=== PATIENT | male | born 1960 | race Caucasian/White ===

== ENCOUNTER 2020-03-25 13:41 | Outpatient (CLI) | payer MEDICARE, SELFPAY ==
--- NOTE | ~2020-03-25 | CT_ITS ---
EXAMINATION:CT lung screening DATE: 03/25/2020 14:17 INDICATION: Personal history of tobacco dependence. Current smoker with 40 pack year history. TECHNIQUE: Computed tomography (CT) of the chest was performed without intravenous contrast. Automate d exposure control and iterative reconstruction technique were employed. The dose-length product (DLP ) was 100.94 mGy-cm. COMPARISON: None. FINDINGS: There is mild emphysema. There is a 3 mm nodule at right major fissure. There is a 3 mm nod ule in right upper lobe. There is a 4 mm nodule in right lower lobe. There is mild scarring at the charanjit ng apices. There is a 4 mm nodule in left lower lobe. A calcified left lung nodule and calcified left hilar lymph nodes are consistent with old granulomatous disease. No pleural effusion. The heart size is normal. There are coronary artery calcifications. No pericardial effusion. There is mild bilatera l gynecomastia. Calcifications in the spleen are consistent with old granulomatous disease. There is severe cervical and thoracic spondylosis. IMPRESSION: 1. Lung-RADS category 2: Benign appearance or behavior. Continue annual screening with noncontrast lo w-dose chest CT in 12 months. Reviewed, dictated and finalized at location A. IMPRESSION: 1. Lung-RADS category 2: Benign appearance or behavior. Continue annual screeni ng with noncontrast low-dose chest CT in 12 months.
== END 2020-03-25 13:42 | disposition home or self-care (01) ==
PROVIDERS: PCP Family Medicine; Visit Provider Family Medicine
DX: Z12.2 Encounter for screening for malignant neoplasm of respiratory organs (principal); Z87.891 Personal history of nicotine dependence
CPT/HCPCS: G0297

== ENCOUNTER 2020-12-09 10:08 | Outpatient (CLI) | payer MEDICARE, SELFPAY ==
--- NOTE | ~2020-12-09 | XR_ITS ---
EXAMINATION: XR hand RT min 3V DATE: 12/09/2020 10:27 INDICATION: Nontraumatic right hand arthritic pain. TECHNIQUE: Posteroanterior, oblique and lateral views of the right hand were obtained. COMPARISON: None. FINDINGS: Bone alignment is normal. No fracture. 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 No cortical erosions to suggest an inflammatory arthritis. Distal ulnar bone island. Soft tissues are unremarkable. IMPRESSION: 1. 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 Reviewed, dictated and finalized at location B. ICAL SOCIOLOGIST
== END 2020-12-09 10:09 | disposition home or self-care (01) ==
LOC: ANHIMG 10:13
PROVIDERS: PCP Family Medicine; Visit Provider Nurse Practitioner Family
DX: M19.031 Primary osteoarthritis, right wrist (principal); M19.041 Primary osteoarthritis, right hand
CPT/HCPCS: 73130

== ENCOUNTER → 2022-04-08 09:42 | Outpatient (CLI) | payer OTHER, SELFPAY ==
--- NOTE | ~2022-04-08 | CT_ITS ---
EXAMINATION: CT lung screening DATE: 04/08/2022 09:58 INDICATION: Z12.2 - Encounter for screening for malignant neoplasm of..., Tobacco dependence. TECHNIQUE: Computed tomography (CT) of the chest was performed without intravenous contrast. Addition al 3D reconstructions utilizing coronal maximum intensity projection (MIP) were performed. Automated exposure control and iterative reconstruction technique were employed. The dose-length product was 16 3.87 mGy-cm. COMPARISON: 03/25/2020 FINDINGS: Mild emphysema. Couple calcite left lower lobe nodules along with calcified left hilar lymph nodes an d multiple splenic calcifications, all consistent with old granulomatous disease. A few unchanged non calcified pulmonary nodules in the bilateral lower lobes, the largest measuring up to 4 mm in the rig ht lower lobe. No new or enlarging pulmonary nodules identified. No pneumonia, pulmonary edema or ple ural effusion. Heart size is normal. Atherosclerotic coronary artery calcific location. Thoracic aort a is normal in caliber. No pathologically enlarged thoracic lymphadenopathy. Visualized upper abdomen is unremarkable. Severe cervical and thoracic spondylosis. IMPRESSION: 1. Lung-RADS category 2: Benign appearance or behavior. Continue annual screening with noncontrast lo w-dose chest CT in 12 months. Reviewed, dictated and finalized at location B. IMPRESSION: 1. Lung-RADS category 2: Benign appearance or behavior. Continue annual screeni ng with noncontrast low-dose chest CT in 12 months.
== END ==
PROVIDERS: PCP Family Medicine; Visit Provider Family Medicine
DX: Z12.2 Encounter for screening for malignant neoplasm of respiratory organs (principal)
CPT/HCPCS: 71271

== ENCOUNTER → 2022-10-31 07:39 | Outpatient (CLI) | payer MEDICARE, SELFPAY ==
--- NOTE | ~2022-10-31 | US_ITS ---
Limited Abdominal Sonogram: Real-time sonographic imaging of the right upper quadrant was performed. Clinical History: Right upper quadrant pain Findings: The liver appears echogenic, with no evidence of mass lesion or bile duct dilatation. Main portal vein demonstrates normal direction of flow. The gallbladder is well distended, and appears no rmal with no evidence of gallstone or wall thickening. The common bile duct measures 4 mm. The visua lized pancreas, aorta, and IVC are unremarkable. Right kidney measures 8.7 cm in length, without hydr onephrosis. Impression: Diffuse fatty infiltration of the liver. Reviewed, dictated and finalized at location [] RACT PROGRAMMER Impression: Diffuse fatty infiltration of the liver.
== END ==
PROVIDERS: PCP Family Medicine; Visit Provider Family Medicine
DX: R10.11 Right upper quadrant pain (principal); K76.0 Fatty (change of) liver, not elsewhere classified
CPT/HCPCS: 76705

== ENCOUNTER 2022-11-21 07:45 | Outpatient (CLI) | payer MEDICARE, SELFPAY ==
--- NOTE | ~2022-11-21 | NM_ITS ---
EXAMINATION: NM hepatobiliary wo pharm DATE: 11/21/2022 11:53 INDICATION: Right upper quadrant abdominal pain. COMPARISON: Ultrasound 10/31/2022 TECHNIQUE: 5 mCi Tc-99m mebrofenin (Choletec) was administered intravenously. Scintigraphic images o f the abdomen were obtained for one hour. Then, the patient drank 8 oz Ensure, and imaging was contin ued for 60 minutes. FINDINGS: There is normal clearance of radiotracer from the blood pool. There is homogeneous tracer u ptake by the liver. Activity progresses to the bowel and gallbladder. Gallbladder ejection fraction (GBEF) was 90%. Note that with this technique, normal GBEF >= 33%. IMPRESSION: 1. Normal hepatobiliary scintigraphy. Reviewed, dictated and finalized at location A. ERING MACHINE OFF BEARER
== END 2022-11-21 07:46 | disposition home or self-care (01) ==
PROVIDERS: PCP Family Medicine; Visit Provider Family Medicine
DX: R10.11 Right upper quadrant pain (principal)
CPT/HCPCS: 78226; A9537

== ENCOUNTER 2023-01-16 07:20 | Day surgery (SDC) | payer MEDICARE, SELFPAY ==
[2022-12-02 15:17] VITALS: BMI 26.7
[2023-01-09 13:37] VITALS: BMI 25.2
--- NOTE | 2023-01-16 08:28 | WPDANESEPPF ---
Anes - Initial Pre Proc Eval Procedure: Operation Date: 01/16/23 09:00 Proposed Procedures p Esophagogastroduodenoscopy - Syd Humphrey MD Date/Time: 01/16/23 08:28 Surgeon: Syd Humphrey MD Pre Op Diagnosis: Gerd and Right Upper Qudrant Pain Patient Data Age: 62 Gender: M Height: 1.68 m Weight: 73.9 kg Allergies Allergy/AdvReac Type Severity Reaction Status Date / Time diazepam Allergy Intermediate Itching Verified 01/16/23 07:46 Home Medications Medication Instructions Recorded Confirmed Type multivitamin 1 tablet PO DAILY 03/28/22 01/16/23 History oxycodone-acetaminophen 5 mg-325 1 tablet PO Q8H PRN Back Pain #30 03/28/22 01/16/23 Rx mg tablet tabs amlodipine 5 mg tablet 5 mg PO DAILY #90 tabs 10/04/22 01/16/23 Rx ibuprofen 200 mg tablet (Advil) 200 mg PO Q6H PRN Pain, Mild 01/09/23 01/16/23 History lisinopril 20 mg tablet See Rx Instructions .Route 01/16/23 Rx .COMPLEX #90 tabs Patient hx anesthesia problems: none Family hx anesthesia problems: none Results Review: All pre-operative results and documents have been reviewed as part of the pre-operative evaluation. [facility] Past Medical History Medical History Erectile dysfunction Fatty liver Surgical History Surgical History Status post carpal tunnel release right Status post lumbar spinal fusion Status post rotator cuff repair right Family History Family History Father Hypertension Mother Hypertension Social History Social History Social History: Single Smoking packs per day: 3 Smoking cigarettes per day: 60.0 Years smoked: 30 Smoking pack-years: 90.00 Smoking status: Former smoker Tobacco type: cigarettes Second hand tobacco smoke exposure: Yes Smoking end date: 11/13/99 Alcohol intake: current Drinks per week: 7 Alcohol use details: 6- 7 beers weekly Substance use: unknown Substance use type: does not use Living arrangements: alone Occupation/Education: occupation Additional occupation/education comments: 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 Gender identity (if verbalized by the patient): Male Sexual Orientation (if Verbalized by the Patient): Straight or Heterosexual Spiritual care concerns: No Anes - Eval Final PreProcedure Day of Procedure 01/16/23 08:28 Patient weight: overweight Heart: regular rate and rhythm Lungs: decreased breath sounds Airway: Mallampati scale class II Neurological: alert and oriented Last oral intake: >/= 8 hours ASA classification: III Emergent: no Anesthetic plan: proceed Anesthesia type and monitoring: general GIVS and standard monitoring Results Review: All pre-operative results and documents have been reviewed as part of the pre-operative evaluation. Informed Consent: The patient's anesthetic plan and its attendant risks and benefits were discussed with the patient/family/POA. Questions were solicited and answers provided to the satisfaction of the patient/family/POA.
[2023-01-16] MEDS: LACTATED RINGERS 1,000 ML 150 ML IV CONT (08:31)
--- NOTE | 2023-01-16 08:45 | PM.HPGS ---
History of Present Illness History of Present Illness Consent: Risks, benefits, and alternatives have been discussed and questions answered. Patient agrees to proceed with procedure. Chief complaint: Gerd and Right Upper Qudrant Pain Narrative: Collins Minor is a 62 year old male with almost 1 year on intermittent nagging rup pain, negative ultrasound other than fatty liver and negative hida scan, normal cmp. Never had EGD. Also history of diarrhea, never had colonoscopy but he is doing cologuard every 2 years. Review of Systems Constitutional: Constitutional: Denies headache(s) and Denies weakness Eyes: Eyes: Denies blurry vision ENT: Reports Normal hearing present, Denies headache(s) and Denies neck pain Cardiovascular: Cardiovascular: Denies chest pain and Denies dyspnea Respiratory: Respiratory: Denies dyspnea Gastrointestinal: Gastrointestinal: Reports no additional gastrointestinal complaints Genitourinary: Genitourinary: Denies dysuria Musculoskeletal: Musculoskeletal: Denies neck pain Integumentary/Breasts: Skin/Breast: Denies dry skin Neurologic: Reports Normal hearing present, Denies headache(s) and Denies weakness Psychiatric: Psychiatric: Denies anxiety Endocrine: Endocrine: Denies change in body appearance Hematologic/Lymphatic: Hematologic/Lymphatic: Denies easy bleeding Allergic/Immunologic: Allergic/Immunologic: Denies urticaria PMFSH Past Medical History Medical History (Updated 01/16/23 @ 08:46 by Syd Humphrey MD) Diarrhea Erectile dysfunction Fatty liver RUQ pain Surgical History Surgical History Status post carpal tunnel release right Status post lumbar spinal fusion Status post rotator cuff repair right Family History Family History Father Hypertension Mother Hypertension Social History Social History Social History: Single Smoking packs per day: 3 Smoking cigarettes per day: 60.0 Years smoked: 30 Smoking pack-years: 90.00 Smoking status: Former smoker Tobacco type: cigarettes Second hand tobacco smoke exposure: Yes Smoking end date: 11/13/99 Alcohol intake: current Drinks per week: 7 Alcohol use details: 6- 7 beers weekly Substance use: unknown Substance use type: does not use Living arrangements: alone Occupation/Education: occupation Additional occupation/education comments: 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 Gender identity (if verbalized by the patient): Male Sexual Orientation (if Verbalized by the Patient): Straight or Heterosexual Spiritual care concerns: No Meds Home Medications and Allergies Home Medications Medication Instructions Recorded Confirmed Type multivitamin 1 tablet PO DAILY 03/28/22 01/16/23 History oxycodone-acetaminophen 5 mg-325 1 tablet PO Q8H PRN Back Pain #30 03/28/22 01/16/23 Rx mg tablet tabs amlodipine 5 mg tablet 5 mg PO DAILY #90 tabs 10/04/22 01/16/23 Rx ibuprofen 200 mg tablet (Advil) 200 mg PO Q6H PRN Pain, Mild 01/09/23 01/16/23 History lisinopril 20 mg tablet See Rx Instructions .Route 01/16/23 Rx .COMPLEX #90 tabs Allergies Allergy/AdvReac Type Severity Reaction Status Date / Time diazepam Allergy Intermediate Itching Verified 01/16/23 07:46 Exam Const: General: comfortable and no acute distress HENMT: Face/Nose/Sinus: Normal nares present Eyes: General: appearance normal, both eyes and all related structures Neck: Neck: no JVD Resp: Auscultation: clear to auscultation bilaterally Cardio: Rate: regular rate Rhythm: regular rhythm GI: Inspection: non-distended GI Palp: Yes Soft to palpation Skin: General skin exam: normal color Neuro: General: gait normal Speech: normal speech Extrem: General: normal to inspection Psych: Mental Status: mental status grossly fili
[2023-01-16 08:57] VITALS: BP 99/69; PULSE 75; RESP 16; O2SAT 97
[2023-01-16 09:07] VITALS: BP 100/68; PULSE 72; RESP 16; O2SAT 98
--- NOTE | 2023-01-16 09:15 | SUR.PHASEII ---
PT AWAKE AND ALERT. TALKATIVE. DRINKING WATER. STATES HE IS READY TO GO HOME. RIDE CALLED. PT DENIES PAIN.
[2023-01-16 09:17] VITALS: BP 123/84; PULSE 73; RESP 19; O2SAT 98
--- NOTE | 2023-01-16 09:18 | WPDANESPN ---
Anes - Prog Note Post-Op Date/Time: 01/16/23 09:18 Cardiovascular status: normal Respiratory status: normal Airway patency: baseline Mental status: baseline Post-Op hydration status: normal Vital Signs: Last Vital Signs Pulse 72 01/16/23 09:07 Resp 16 01/16/23 09:07 BP 100/68 01/16/23 09:07 Pulse Ox 98 01/16/23 09:07 O2 Del Method Room Air 01/16/23 09:07 Pain Score (VAS): 0 I/O: Intake & Output 01/15/23 01/16/23 01/16/23 23:59 07:59 15:59 Intake Total 0 Balance 0 Patient Feedback: Patient satisfied with anesthetic care.
== END 2023-01-16 09:36 | disposition home or self-care (01) ==
PROVIDERS: PCP Family Medicine; Visit Provider Internal Medicine Gastroenterology
PROC: 0DJ08ZZ Inspection of Upper Intestinal Tract, Via Natural or Artificial Opening Endoscopic (ICD-10-PCS; CPT 43235; principal; 2023-01-16 09:00)
DX: R10.11 Right upper quadrant pain (principal)
CPT/HCPCS: 43239

== ENCOUNTER 2023-01-16 09:00 | Outpatient (NON) | payer MEDICARE, SELFPAY | END 2023-01-16 09:01 | disposition home or self-care (01) | LOC: ANHLAB 01-17 10:03 | PROVIDERS: PCP Family Medicine; Visit Provider Internal Medicine Gastroenterology | DX: R10.11 Right upper quadrant pain (principal) | CPT/HCPCS: 88305 ==

== ENCOUNTER → 2023-04-11 09:17 | Outpatient (CLI) | payer MEDICARE, SELFPAY ==
--- NOTE | ~2023-04-11 | CT_ITS ---
EXAMINATION:CT diagnostic chest wo con DATE: 04/11/2023 09:39 INDICATION: Multiple pulmonary nodules. TECHNIQUE: Computed tomography (CT) of the chest was performed without intravenous contrast. Automate d exposure control and iterative reconstruction technique were employed. The dose-length product (DLP ) was 70.86 mGy-cm. COMPARISON: Chest CT 04/08/2022 FINDINGS: There is mild scarring at the lung apices. There is mild emphysema. There is a 3 mm nodule in right upper lobe. There is a 4 mm nodule at right major fissure. There is a 4 mm nodule in right l ower lobe. There is a 4 mm nodule in left lower lobe. There is a 2 mm nodule in left lower lobe. Thes e findings are stable from 04/08/2022. Calcified left hilar lymph nodes are consistent with old granul omatous disease. No pleural effusion. The heart size is normal. There are coronary artery calcificati ons. No pericardial effusion. There is mild bilateral gynecomastia. Calcifications in the spleen are consistent with old granulomatous disease. There is moderate thoracic spondylosis. There is mild certified social workers in health care chencho anterior wedging of multiple vertebral bodies. IMPRESSION: 1. Lung-RADS category 2: Benign appearance or behavior. Continue annual screening with noncontrast lo w-dose chest CT in 12 months. Reviewed, dictated and finalized at location L. IMPRESSION: 1. Lung-RADS category 2: Benign appearance or behavior. Continue annual screeni ng with noncontrast low-dose chest CT in 12 months.
== END ==
PROVIDERS: PCP Family Medicine; Visit Provider Physician Assistant
DX: R91.8 Other nonspecific abnormal finding of lung field (principal); Z87.891 Personal history of nicotine dependence
CPT/HCPCS: 71250

== ENCOUNTER 2023-10-19 13:56 | Outpatient (CLI) | payer MEDICARE, SELFPAY ==
--- NOTE | ~2023-10-19 | US_ITS ---
EXAMINATION: US carotid duplex BI DATE: 10/19/2023 14:34 INDICATION: TIA. TECHNIQUE: Grayscale, color Doppler, and pulsed Doppler images of the cervical carotid arteries were obtained. The degree of vessel stenosis is placed in one of the following categories: normal, <50%, 5 0-69%, >=70% but less than near-occlusion, near-occlusion, or total occlusion. Note that percent sten osis relative to normal distal artery lumen diameter is indirectly measured from velocity measurement s as described by Cody, et al. Radiology 2003; 229:340-346. Notes: Normal: Peak systolic velocity <125 centimeters/sec and no plaque <50%. Peak systolic velocity <125 ( EDV <40; ICA/CCA PSV ratio <2.0; used these factors only a tandem lesions or low cardiac output or co ntralateral disease) 50-69 %: PSV 125-230 (EDV 40-100; ratio 2-4) >= 70% but less than near occlusion: PSV greater than 230 (EDV > 100; ratio> 4.0) Near Occlusion: PSV that is variable; markedly narrowed lumen Occlusion: Absent flow on color/spectral Doppler and no lumen on stratton scale. COMPARISON: None. FINDINGS: RIGHT: The right common carotid artery (CCA) peak systolic velocity (PSV) is 83 cm/s. The right internal car otid artery (ICA) PSV is 186 cm/s. The right ICA end-diastolic velocity (EDV) is 43 cm/s. The right I CA/CCA PSV ratio is 2.2. The external carotid artery (ECA) PSV is 144 cm/s. There is antegrade flow i n the right vertebral artery. LEFT: The left CCA PSV is 97 cm/s. The left ICA PSV is 127 cm/s. The left ICA EDV is 44 cm/s. The left ICA/ CCA PSV ratio is 1.3. The ECA PSV is 197 cm/s. There is antegrade flow in the left vertebral artery. IMPRESSION: 1. 50-69% stenosis in the right internal carotid artery by sonographic criteria. 2. 50-69% stenosis in the left internal carotid artery by sonographic criteria. Reviewed, dictated and finalized at location L. OSITY TESTER IMPRESSION: 1. 50-69% stenosis in the right internal carotid artery by sonographic criteria . 2. 50-69% stenosis in the left internal carotid artery by sonographic criteria.
--- NOTE | ~2023-10-19 | CT_ITS ---
EXAMINATION: CT BRAIN W/O DATE: 10/19/2023 14:35 INDICATION: TIA. TECHNIQUE: Computed tomography (CT) of the head was performed without intravenous contrast. The dose- length product was 681.00 mGy-cm. Automated exposure control and iterative reconstruction technique w ere employed. COMPARISON: No prior studies for comparison. FINDINGS: Normal brain parenchymal volume for age. Normal stratton-white differentiation. No acute intrac ranial hemorrhage, infarction, mass or mass effect. No ventriculomegaly or midline shift. Midline sagittal images demonstrate a normal corpus callosum, c raniovertebral junction and sella turcica. Basilar cisterns are patent. There is moderate mucosal thickening of the maxillary sinuses with inspissated gas in the fluid. Mast oids are pneumatized. IMPRESSION: 1. No acute intracranial abnormality. 2: Moderate sinusitis, likely acute. Reviewed, dictated and finalized at location L. STANT ADMINISTRATOR
== END 2023-10-19 13:57 | disposition home or self-care (01) ==
LOC: ANHIMG 14:02
PROVIDERS: PCP Family Medicine; Visit Provider Family Medicine
DX: G45.9 Transient cerebral ischemic attack, unspecified (principal)
CPT/HCPCS: 70450; 93880

== ENCOUNTER → 2023-11-20 16:12 | Outpatient (REF) | payer MEDICARE, SELFPAY | LOC: ANHLAB 16:12 | PROVIDERS: PCP Family Medicine; Visit Provider Plastic Surgery | DX: C44.619 Basal cell carcinoma of skin of left upper limb, including shoulder (principal) | CPT/HCPCS: 88305 ==

== ENCOUNTER 2024-04-17 14:30 | Outpatient (CLI) | payer MEDICARE, SELFPAY ==
--- NOTE | ~2024-04-17 | CT_ITS ---
EXAMINATION:CT lung screening DATE: 04/17/2024 14:44 INDICATION: Nicotine dependence, cigarettes, uncomplicated. Current smoker with 40 pack year history. TECHNIQUE: Computed tomography (CT) of the chest was performed without intravenous contrast. Automate d exposure control and iterative reconstruction technique were employed. The dose-length product (DLP ) was 90.68 mGy-cm. COMPARISON: Chest CT 04/11/2023 FINDINGS: There is mild scarring at the lung apices. There is mild emphysema. There is a 4 mm nodule at right major fissure. There is a 4 mm nodule in right lower lobe. These findings are unchanged. The re are a few scattered nodules measuring up to 3 mm in the lungs. A calcified left lung nodule and ca lcified left hilar and mediastinal lymph nodes are consistent with old granulomatous disease. No pleu ral effusion. Calcifications in the spleen are consistent with old granulomatous disease. There is bi lateral gynecomastia. There is severe cervical, thoracic, and lumbar spondylosis. There is mild chron ic anterior wedging of multiple vertebral bodies. There are changes of posterior fusion procedure in lumbar spine. IMPRESSION: 1. Lung-RADS category 2: Benign appearance or behavior. Continue annual screening with noncontrast lo w-dose chest CT in 12 months. Reviewed, dictated and finalized at location A. IMPRESSION: 1. Lung-RADS category 2: Benign appearance or behavior. Continue annual screeni ng with noncontrast low-dose chest CT in 12 months.
== END 2024-04-17 14:31 | disposition home or self-care (01) ==
PROVIDERS: PCP Family Medicine; Visit Provider Family Medicine
DX: Z12.2 Encounter for screening for malignant neoplasm of respiratory organs (principal); F17.210 Nicotine dependence, cigarettes, uncomplicated
CPT/HCPCS: 71271

== ENCOUNTER 2025-04-18 13:29 | Outpatient (CLI) | payer MEDICARE, SELFPAY ==
--- NOTE | ~2025-04-18 | CT_ITS ---
CT Scan of the Chest without Contrast: Clinical Indication: Lung cancer screening, nicotine dependence Technique: Contiguous sections were acquired throughout the chest without intravenous contrast. Dose reduction technique was used on this scan by utilizing automated exposure control and iterative recon struction technique. The dose-length product (DLP) was 123.98 mGy-cm. COMPARISON: 04/17/2024 Findings: There is no evidence of any significant mediastinal, hilar or axillary lymphadenopathy. The mediastin al soft tissues appear normal. There is no evidence of pleural or pericardial effusion. Stable 4 mm right lower lobe nodule (axial image 84). Stable additional 4 mm right basilar pulmonary nodule (axial image 105). Calcified left lower lobe granuloma present. Probable mild emphysema. Images through the upper abdomen reveal no abnormalities. Impression: Lung RADS 2: Benign appearance. 12 month follow-up screening CT advised. Reviewed, dictated and finalized at [facility]. Impression: Lung RADS 2: Benign appearance. 12 month follow-up screening CT advised.
--- OUTSIDE RECORDS SUMMARY | 2025-04-18 13:32 | XMS_ITS | Clinical Summary ---
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 Gender Identity Not on file Sexual Orientation Not on file Plan of Treatment Health Maintenance Due Date Last Done Comments Hepatitis C Virus (HCV) Screening 1960 TdaP Immunization 1960 Colonoscopy 2003 Colorectal Cancer Screening 2003 Cologuard 02/29/2008 Immunochemical Fecal Occult Blood 02/29/2008 Pneumococcal Immunization (5 0+ years) (1 of 1 - PCV) 02/29/2008 Zoster Immunization (1 of 2) 02/29/2008 PSA Discussion 2013 Influenza Immunization (#1) 2024 SARS-COV-2 Immunization ( season) 2024 01/18/2021, 12/26/2020 Respiratory Syncytial Virus (RSV) Immunization (Adult) (1 - 1-dose 75+ series) 2033 Hepatitis B Immunization Aged Out No longer eligible based on patient's age to complete this topic Meningococcal Immunization (ACWY) Aged Out No longer eligible b ased on patient's age to complete this topic Rotavirus Immunization Aged Out No lo nger eligible based on patient's age to complete this topic
--- OUTSIDE RECORDS SUMMARY | 2025-04-18 13:32 | XMS_ITS | CONTINUITY OF CARE DOCUMENT ---
Author Name brodie calloway Address Unknown Organization [facility] Address [address] [place] [address] Phone [phone] Care Team Providers Care Store Sales Manager Name Role Phone RAIMUNDO VEGA, Unavailable [phone] BENITO OLIVER MD Unavailable [phone] RESULTS Date Observation Value Provider Reference Range Interpretation Location platelet count 267 10*3/mm3 Thais Gary hematocrit, blood 43.8 % Thais Gary B-type natriuretic peptide <5 Thais Gary alanine aminotransferase (SGPT), serum 36 1/L Thais Gary aspartate aminotransferase (SGOT), serum 29 1/L Thais Gary creatinine, serum 0.86 mg/dL Thais Gary potassium, serum 4.0 mmol/L Thais Gary sodium, serum 137 mmol/L Thais Gary INSURANCE PROVIDERS Payer name Policy type / Coverage type [employer] party ID COVENTRY- OPEN ACCESS/PPO Other [id number]
== END 2025-04-18 13:30 | disposition home or self-care (01) ==
PROVIDERS: PCP Family Medicine; Visit Provider Family Medicine
DX: Z12.2 Encounter for screening for malignant neoplasm of respiratory organs (principal); F17.210 Nicotine dependence, cigarettes, uncomplicated
CPT/HCPCS: 71271

== ENCOUNTER 2025-05-29 02:04 | Day surgery (SDC) | payer MEDICARE, SELFPAY ==
[2025-05-26 08:52] VITALS: BMI 25.8
--- OUTSIDE RECORDS SUMMARY | 2025-05-29 02:08 | XMS_ITS | Clinical Summary ---
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
--- OUTSIDE RECORDS SUMMARY | 2025-05-29 02:08 | XMS_ITS | Clinical Summary ---
Author Organization [facility] Address [address] [place] [address] Care Team Providers Care Supervisor Twisting Department Name Role Phone Americo Coburn MD Primary Care Provider Social History Tobacco Use Types Packs/Day Years Used Date Smoking Tobacco: Never Assessed Sex and Gender Information Value Date Recorded Sex Assigned at Not on file Legal Sex Male 1:58 AM CDT Gender Identity Not on file Sexual Orientation Not on file Last Filed Vital Signs Vital Sign Reading Time Taken Comments Blood Pressure 136/80 04/19/2016 11:22 AM CDT Pulse 80 04/19/2016 11:22 AM CDT Temperature - - Respiratory Rate - - Oxygen Saturation - - Inhaled Oxygen Concentration - - Weight 83 kg (183 lb) 04/19/2016 11:22 AM CDT Height 167.6 cm (5' 6) 04/19/2016 11:22 AM CDT Body Mass Index 29.54 04/19/2016 11:22 AM CDT Plan of Treatment Health Maintenance Due Date Last Done Comments Colorectal Cancer Screening Colonoscopy (10 Years) 1960 Hepatitis C 02/29/1976 DTaP, Tdap and Td Vaccines ( 1 - Tdap) 1977 Pneumococcal Vaccine: 50+ Ye ars (1 of 1 - PCV) 02/29/2008 Zoster Vaccines (1 of 2) 02/29/2008 COVID-19 Vaccine ( - 2023-2 5 season) 2024 RSV Immunization or 60+ Years (1 - 1-dose 75+ series) 2033 Meningococcal B Vaccine Aged Out No l onger eligible based on patient's age to complete this topic Meningococcal Vaccine Aged Out No wilbert parker eligible based on patient's age to complete this topic RSV Immunizations Under 20 Months Aged Out No longer eligible based on patient's age to complete this topic Care Teams Supervisor Twisting Department Relationship Specialty Start Date End Date Americo Coburn MD [address] [place] [address] [facility] - General 04/19/16
[2025-05-29 11:32] VITALS: BP 115/72; PULSE 69; RESP 18; TEMP 36.7; O2SAT 100
[2025-05-29] MEDS: LACTATED RINGERS 1,000 ML 150 ML IV CONT (11:42)
--- NOTE | 2025-05-29 12:19 | PM.HPGS ---
History of Present Illness History of Present Illness Consent: Risks, benefits, and alternatives have been discussed and questions answered. Patient agrees to proceed with procedure. Chief complaint: Other fecal abnormalities Narrative: Collins Minor is a 65 year old male here for first colonoscopy, + cologuard, also diarrhea for over 1 year Review of Systems Review of Systems: All systems reviewed & are unremarkable except as noted in HPI and below PMFSH Past Medical History Medical History Transient ischemic attack Diarrhea RUQ pain Fatty liver Erectile dysfunction Surgical History Surgical History Status post lumbar spinal fusion Status post carpal tunnel release right Status post rotator cuff repair right Family History Family History Father Hypertension Mother Hypertension Social History Social History Social History: Single Smoking packs per day: 3 Smoking cigarettes per day: 60.0 Years smoked: 30 Smoking pack-years: 90.00 Smoking status: Former smoker Tobacco type: cigarettes Second hand tobacco smoke exposure: Yes Smoking end date: 11/13/99 Alcohol intake: current Drinks per week: 7 Alcohol use details: couple beers a week Substance use: never Substance use type: does not use Do You Feel Safe in your Home?: Yes Lack of Transportation: No Lack of Food: Never True Current Housing: I Have Housing Concerned About Future Housing: No Difficulty Paying Gas/Electric Bills: No Difficulty Paying for Meds: No Currently Unemployed: No Education: Associate Degree Difficulty w/ Childcare or Family Care: No Living arrangements: alone Occupation/Education: occupation Additional occupation/education comments: 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 Gender identity (if verbalized by the patient): Male Sexual Orientation (if Verbalized by the Patient): Straight or Heterosexual Spiritual care concerns: No Meds Home Medications and Allergies Home Medications ?Medication ?Instructions ?Recorded ?Confirmed ?Type multivitamin 1 tablet PO DAILY 03/28/22 05/29/25 History ibuprofen 200 mg tablet (Advil) 200 mg PO Q6H PRN Pain, Mild 01/09/23 05/26/25 History aspirin 81 mg tablet,delayed 81 mg PO DAILY #30 tabs 09/26/23 05/29/25 Rx release glucosamine sulfate 500 mg tablet 500 mg PO DAILY 04/03/24 05/26/25 History (Cidatrine (glucosamine)) oxycodone-acetaminophen 5 mg-325 1 tablet PO Q8H PRN Back Pain #21 04/03/24 05/26/25 Rx mg tablet tabs amlodipine 5 mg tablet 5 mg PO DAILY #90 tabs 12/11/24 05/29/25 Rx lisinopril 40 mg tablet See Rx Instructions .Route 01/17/25 05/29/25 Rx .COMPLEX #90 tabs Allergies Allergy/AdvReac Type Severity Reaction Status Date / Time diazepam Allergy Intermediate Itching Verified 05/26/25 08:52 Vital Signs Vital Signs - 24 hr 05/29/25 11:32 Temperature 98.1 F Pulse Rate 69 Respiratory Rate 18 Blood Pressure 115/72 Pulse Oximetry 100 Oxygen Delivery Room Air Exam Const: General: comfortable and no acute distress HENMT: Face/Nose/Sinus: Normal nares present Eyes: General: appearance normal, both eyes and all related structures Neck: Neck: no JVD Resp: Auscultation: clear to auscultation bilaterally Cardio: Rate: regular rate Rhythm: regular rhythm GI: Inspection: non-distended GI Palp: Yes Soft to palpation Skin: General skin exam: normal color Neuro: Speech: normal speech Extrem: General: normal to inspection Psych: Mental Status: mental status grossly normal Assessment and Plan Assessment and plan (1) Positive colorectal cancer screening using Cologuard test: Code(s): R19.5 - Other fecal abnormalities Status: Acute Assessment and Plan: colonoscopy (2) Diarrhea: Code(s): R19.7 - Diarrhea, unspecified Status: Acute Assessment and Plan: random colon bx
--- NOTE | 2025-05-29 12:21 | WPDANESEPPF ---
Anes - Initial Pre Proc Eval Procedure: Operation Date: 05/29/25 12:30 Proposed Procedures p Colonoscopy - Syd Humphrey MD Date/Time: 05/29/25 12:21 Surgeon: Syd Humphrey MD Pre Op Diagnosis: Other fecal abnormalities Patient Data Age: 65 Gender: M Height: 1.68 m Weight: 74 kg Last Vital Signs Temp 98.1 F 05/29/25 11:32 Pulse 69 05/29/25 11:32 Resp 18 05/29/25 11:32 BP 115/72 05/29/25 11:32 Pulse Ox 100 05/29/25 11:32 O2 Del Method Room Air 05/29/25 11:32 Allergies Allergy/AdvReac Type Severity Reaction Status Date / Time diazepam Allergy Intermediate Itching Verified 05/26/25 08:52 Home Medications ?Medication ?Instructions ?Recorded ?Confirmed ?Type multivitamin 1 tablet PO DAILY 03/28/22 05/29/25 History ibuprofen 200 mg tablet (Advil) 200 mg PO Q6H PRN Pain, Mild 01/09/23 05/26/25 History aspirin 81 mg tablet,delayed 81 mg PO DAILY #30 tabs 09/26/23 05/29/25 Rx release glucosamine sulfate 500 mg tablet 500 mg PO DAILY 04/03/24 05/26/25 History (Cidatrine (glucosamine)) oxycodone-acetaminophen 5 mg-325 1 tablet PO Q8H PRN Back Pain #21 04/03/24 05/26/25 Rx mg tablet tabs amlodipine 5 mg tablet 5 mg PO DAILY #90 tabs 12/11/24 05/29/25 Rx lisinopril 40 mg tablet See Rx Instructions .Route 01/17/25 05/29/25 Rx .COMPLEX #90 tabs Patient hx anesthesia problems: none Family hx anesthesia problems: none Results Review: All pre-operative results and documents have been reviewed as part of the pre-operative evaluation. [facility] Past Medical History Medical History Transient ischemic attack Diarrhea RUQ pain Fatty liver Erectile dysfunction Surgical History Surgical History Status post lumbar spinal fusion Status post carpal tunnel release right Status post rotator cuff repair right Family History Family History Father Hypertension Mother Hypertension Social History Social History Social History: Single Smoking packs per day: 3 Smoking cigarettes per day: 60.0 Years smoked: 30 Smoking pack-years: 90.00 Smoking status: Former smoker Tobacco type: cigarettes Second hand tobacco smoke exposure: Yes Smoking end date: 11/13/99 Alcohol intake: current Drinks per week: 7 Alcohol use details: couple beers a week Substance use: never Substance use type: does not use Do You Feel Safe in your Home?: Yes Lack of Transportation: No Lack of Food: Never True Current Housing: I Have Housing Concerned About Future Housing: No Difficulty Paying Gas/Electric Bills: No Difficulty Paying for Meds: No Currently Unemployed: No Education: Associate Degree Difficulty w/ Childcare or Family Care: No Living arrangements: alone Occupation/Education: occupation Additional occupation/education comments: 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 Gender identity (if verbalized by the patient): Male Sexual Orientation (if Verbalized by the Patient): Straight or Heterosexual Spiritual care concerns: No Anes - Eval Final PreProcedure Day of Procedure 05/29/25 12:21 Patient weight: overweight Lungs: normal air movement Airway: Mallampati scale class II Neurological: alert and oriented Last oral intake: >/= 8 hours ASA classification: III Emergent: no Anesthetic plan: proceed Anesthesia type and monitoring: general GIVS and standard monitoring Results Review: All pre-operative results and documents have been reviewed as part of the pre-operative evaluation. HTN, hyperlipidemia, hx of TIA 2022 (on ASA), ex smoker, quit 1999. Informed Consent: The patient's anesthetic plan and its attendant risks and benefits were discussed with the patient/family/POA. Questions were solicited and answers provided to the satisfaction of the patient/family/POA.
--- NOTE | 2025-05-29 12:29 | S_PTH ---
PATIENT: Collins Minor LOC: [facility]#:[id number] AGE/SX: 65/M ROOM: RE05/29/[address]: Syd Humphrey MD : 1960 BED: DIS: 05/29/2025 SPEC #: [id number] RECD: 05/29/25 13:44 STATUS: JACK REQ #: [id number] HUBERT: 05/29/25 12:[address]: Syd Humphrey DEPT: [facility] Surgical RECD BY: Sadaf Finnegan ENTERED: 05/29/25 13:45 SP TYPE: Surgical OTHR DR: Randal Medel MD Tissues: A - Colon Biopsy Procedures: Hematoxylin and Eosin Stain Gross and Microscopic Level 4
[2025-05-29 12:39] VITALS: BP 90/56; PULSE 62; RESP 18; O2SAT 99
[2025-05-29 12:49] VITALS: BP 96/64; PULSE 63; RESP 15; O2SAT 99
[2025-05-29 12:59] VITALS: BP 115/72; PULSE 60; RESP 21; O2SAT 99
--- NOTE | 2025-05-29 13:13 | SUR.PHASEII ---
Pt recovered, sitting in recliner. Awaiting medical car to arrive. ETA 14:00.
== END 2025-05-29 14:18 | disposition home or self-care (01) ==
PROVIDERS: PCP Family Medicine; Referring Provider Family Medicine; Visit Provider Internal Medicine Gastroenterology
PROC: 0DJD8ZZ Inspection of Lower Intestinal Tract, Via Natural or Artificial Opening Endoscopic (ICD-10-PCS; CPT 45378; principal; 2025-05-29 12:30)
DX: K52.832 Lymphocytic colitis (principal); K57.30 Diverticulosis of large intestine without perforation or abscess without bleeding; K64.8 Other hemorrhoids; Z87.891 Personal history of nicotine dependence
CPT/HCPCS: 45380; 88305; J2003; J2704; J7120

== ENCOUNTER 2025-07-30 13:49 | Emergency (ER) | payer MEDICARE, SELFPAY ==
--- NOTE | ~2025-07-30 | XR_ITS ---
XR lumbar spine 2-3V Indication: trauma Comparison: None Findings: Moderate loss of vertebral height throughout with posterior fixation S1, L5, L4 on L3 with anterior fixation of L4, L5 and S1 with disc prostheses, the hardware is intact, no acute fracture. Severe loss of the remaining disc heights Soft tissues unremarkable Impression: No acute abnormality. Reviewed, dictated and finalized at location A. Impression: No acute abnormality.
--- NOTE | ~2025-07-30 | US_ITS ---
EXAMINATION: US venous doppler [facility] DATE: 07/30/2025 15:20 INDICATION: Lower limb swelling and edema. TECHNIQUE: Grayscale ultrasound images without and with compression and Doppler ultrasound images of the bilateral lower extremity veins were obtained. COMPARISON: None. FINDINGS: The visualized portions of right common femoral vein, profunda (deep) femoral vein, femoral vein, popliteal vein, peroneal veins, posterior tibial veins, and greater saphenous vein outflow are patent. The visualized portions of left common femoral vein, profunda femoral vein, femoral vein, popliteal vein, peroneal veins, posterior tibial veins, and greater saphenous vein outflow are patent. IMPRESSION: 1. No deep venous thrombosis. Reviewed, dictated and finalized at location E.
[2025-07-30 14:03] VITALS: BP 165/85; PULSE 105; RESP 18; TEMP 36.8; O2SAT 99
[2025-07-30 14:24] VITALS: O2SAT 97
--- OUTSIDE RECORDS SUMMARY | 2025-07-30 14:24 | XMS_ITS | Clinical Summary ---
Author Organization [facility] Address [address] [place] [id number] Care Team Providers Care Business Education Instructor Name Role Phone Americo Coburn MD Primary [...] COVID-19 Vaccine ( - 2023-2 5 season) 2025 RSV Immunization or 60+ Years (1 - [...] age to complete this topic Care Teams Business Education Instructor Relationship Specialty Start Date End Date Americo Coburn MD [address] [place] [address] [facility] - General 04/19/16
--- OUTSIDE RECORDS SUMMARY | 2025-07-30 14:24 | XMS_ITS | Clinical Summary ---
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 Gender Identity Not on file Sexual Orientation Not on file Plan of Treatment Health Maintenance Due Date Last Done Comments Hepatitis C Virus (HCV) Screening 1960 TdaP Immunization 1960 Cologuard 2003 Colonoscopy 2003 Colorectal Cancer Screening 2003 Immunochemical Fecal Occult Blood 2003 Pneumococcal Immunization (5 0+ years) (1 of 1 - PCV) 02/29/2008 Zoster Immunization (1 of 2) 02/29/2008 SARS-COV-2 Immunization (3 - season) 2024 01/18/2021, 12/26/2020 Influenza Immunization (#1) 2025 Respiratory Syncytial Virus (RSV) Immunization (Adult) (1 - 1-dose 75+ series) 2033 Hepatitis B Immunization Aged Out No longer eligible based on patient's age to complete this topic Human Papillomavirus (HPV) Immunization Aged Out No longer eligible b ased on patient's age to complete this topic Meningococcal Immunization (ACWY) Aged Out No longer eligible b ased on patient's age to complete this topic Rotavirus Immunization Aged Out No lo nger eligible based on patient's age to complete this topic
[2025-07-30 14:31] VITALS: O2SAT 100
[2025-07-30 15:05] LABS: Hematocrit 42.1 % (42.0-52.0); Hemoglobin 14.4 g/dL (14.0-18.0); Immature Granulocyte Percent A 1.3 % (0-0.5); Lymphocytes Absolute Auto 0.53 K/mm3 (0.9-3.2); Mean Corpuscular HGB Conc 34.2 g/dl (32-36); Mean Corpuscular Hemoglobin 35.3 pg (26-34); Mean Corpuscular Volume 103.2 fl (80-100); Nucleated Red Blood Cells Absolute Auto 0.000 K/mm3 (0.0-0.012); Nucleated Red Blood Cells Perc 0.0 % (0.0-0.2); Platelet Count Result 226 k/mm3 (150-375); Red Blood Count 4.08 M/mm3 (4.6-6.20); White Blood Count 5.3 K/mm3 (4.5-10.0)
[2025-07-30 15:16] LABS: Alanine Aminotransferase 32 U/L (6-50); Albumin Level 4.5 g/dL (3.5-5.1); Alkaline Phosphatase 108 U/L (38-126); Anion Gap 12 mmol/L (4-12); Aspartate Amino Transferase 41 U/L (17-59); Bilirubin,Total 1.3 mg/dL (0.2-1.3); Blood Urea Nitrogen 16 mg/dL (9-20); Calcium 9.7 mg/dL (8.4-10.2); Carbon Dioxide 21 mmol/L (22-30); Chloride 106 mmol/L (98-107); Estimated Glomerular Filt Rate > 60; Glucose 86 mg/dL (65-110); INR 0.9; Potassium 3.9 mmol/L (3.4-5.0); Prothrombin Time 12.3 Seconds (11.1-14.7); Sodium 139 mmol/L (137-145); Total Protein 7.8 g/dL (6.3-8.2)
[2025-07-30 15:17] LABS: Partial Thromboplastin Time 27.3 Seconds (22.3-36.8)
[2025-07-30 15:24] VITALS: O2SAT 98
[2025-07-30 15:30] VITALS: BP 108/63; PULSE 68; RESP 18; O2SAT 99
--- OUTSIDE RECORDS SUMMARY | 2025-07-30 16:11 | XMS_ITS | Clinical Summary ---
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
--- OUTSIDE RECORDS SUMMARY | 2025-07-30 16:11 | XMS_ITS | Clinical Summary ---
Author Organization [facility] Address [address] [place] [address] Care Team Providers Care Equipment Service Lead Name Role Phone Americo Coburn MD Primary Care Provider [phone] Social History Tobacco Use Types Packs/Day Years [...] this topic Meningococcal Vaccine Aged Out No iwlbert parker eligible based on patient's age to complete this topic RSV Immunizations Under 20 Months Aged Out No longer eligible based on patient's age to complete this topic Care Teams Equipment Service Lead Relationship Specialty Start Date End Date Americo Coburn MD [address] [place] [address] [facility] - General 04/19/16
--- NOTE | 2025-07-30 16:13 | ED_ITS ---
HPI - General Adult General Chief complaint: Unspecified Stated complaint: RLE swelling, bruising to L flank Time Seen by Provider: 07/30/25 14:19 History of Present Illness HPI narrative: Patient is a 65-year-old male who presents ER with swelling to the legs bilaterally. Right greater than left. Has been on prednisone for several weeks in his nose this is a side effect. No chest pain or shortness of breath. He also was at a follow-up appointment today was noted to have bruising to his left low back. There is a linear area of abrasion he does not remember any trauma. Related Data Home Medications ?Medication ?Instructions ?Recorded ?Confirmed ?Last Taken ?Type multivitamin 1 tablet PO DAILY 03/28/22 0 07/30/25 05/28/25 History ibuprofen 200 mg tablet (Advil) 200 mg PO Q6H PRN Pain , Mild 01/09/23 07/30/25 Unknown History Allergies Allergy/AdvReac Type Severity Reaction Status Date / Time diazepam Allergy Intermediate Itching Verified 07/30/25 12:47 Review of Systems 2 Review of Systems: All systems reviewed & are unremarkable except as noted in HPI and below Constitutional: Constitutional: Reports no additional constitutional complaints Cardiovascular: Cardiovascular: Reports no additional cardiovascular complaints Respiratory: Respiratory: Reports no additional respiratory complaints Musculoskeletal: Musculoskeletal: Reports no additional musculoskeletal complaints Integumentary/Breasts: Skin/Breast: Reports system reviewed and no additional complaints, except as docu PMFSH Past Medical History Medical History Transient ischemic attack Diarrhea RUQ pain Fatty liver Erectile dysfunction Surgical History Surgical History Status post lumbar spinal fusion Status post carpal tunnel release right Status post rotator cuff repair right Family History Family History Father Hypertension Mother Hypertension Social History Social History Social History: Single Smoking packs per day: 3 Smoking cigarettes per day: 60.0 Years smoked: 30 Smoking pack-years: 90.00 Smoking status: Former smoker Tobacco type: cigarettes Second hand tobacco smoke exposure: Yes Smoking end date: 11/13/99 Alcohol intake: current Drinks per week: 7 Alcohol use details: couple beers a week Substance use: never Substance use type: does not use Do You Feel Safe in your Home?: Yes Lack of Transportation: No Lack of Food: Never True Current Housing: I Have Housing Concerned About Future Housing: No Difficulty Paying Gas/Electric Bills: No Difficulty Paying for Meds: No Currently Unemployed: No Education: Associate Degree Difficulty w/ Childcare or Family Care: No Living arrangements: alone Occupation/Education: occupation Additional occupation/education comments: 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 Gender identity (if verbalized by the patient): Male Sexual Orientation (if Verbalized by the Patient): Straight or Heterosexual Spiritual care concerns: No Exam 2 Narrative: GENERAL: Well-appearing, well-nourished, and in no acute distress. HEAD: Normocephalic, atraumatic. ENT: Mucous membranes moist. CHEST: Clear to auscultation. No respiratory distress. HEART: Regular rate and rhythm. Normal peripheral pulses. Back: No midline tenderness the T/L-spine. Left low back around L4/L5 there is area of aging contusion that is yellow/purple/green. There is a central linear abrasion. EXTREMITIES: Normal range of motion. 2+ edema. SKIN: Warm, dry, no rash. NEURO: Alert and oriented x3. PSYCH: Normal mood and affect. Course Course Emergency Course: No acute issues on imaging or labs. Appropriate for discharge home. Patient given reassurance. Vital Signs Vital signs: Vital Signs Temperature 98.3 F 07/30/25 14:03 Pulse Rate 105 H 07/30/25 14:03 Respiratory Rate 18 07/30/25 14:03 Blood Pressure 165/85 H 07/30/25 14:03 Pulse Oximetry 99 07/30/25 14:03 Oxygen Delivery Room Air 07/30/25 14:03 Temperature 98.3 F 07/30/25 14:03 Pulse Rate 105 H 07/30/25 14:03 Respiratory Rate 18 07/30/25 14:03 Blood Pressure 165/85 H 07/30/25 14:03 Pulse Oximetry 99 07/30/25 14:03 Oxygen Delivery Room Air 07/30/25 14:03 Medical Decision Making Vital Signs Vital Signs: Vital Signs Temperature 98.3 F 07/30/25 14:03 Pulse Rate 105 H 07/30/25 14:03 Respiratory Rate 18 07/30/25 14:03 Blood Pressure 165/85 H 07/30/25 14:03 Pulse Oximetry 99 07/30/25 14:03 Oxygen Delivery Room Air 07/30/25 14:03 Temperature 98.3 F 07/30/25 14:03 Pulse Rate 105 H 07/30/25 14:03 Respiratory Rate 18 07/30/25 14:03 Blood Pressure 165/85 H 07/30/25 14:03 Pulse Oximetry 99 07/30/25 14:03 Oxygen Delivery Room Air 07/30/25 14:03 Lab Data 07/30/25 15:01 07/30/25 15:01 Labs: Lab Results 07/30/25 Range/Units 15:01 WBC 5.3 (4.5-10.0) K/mm3 RBC 4.08 L (4.6-6.20) M/mm3 Hgb 14.4 (14.0-18.0) g/dL Hct 42.1 (42.0-52.0) % MCV 103.2 H (80-100) fl MCH 35.3 H (26-34) pg MCHC 34.2 (32-36) g/dl RDW 13.5 (11.5-14.5) % Plt Count 226 (150-375) k/mm3 MPV 8.7 (7.4-10.4) fl Immature Gran % (Auto) 1.3 H (0-0.5) % Neut % (Auto) 81.0 H (45.5-73.1) % Lymph % (Auto) 10.0 L (18.3-44.2) % [place] % (Auto) 6.6 (2.6-8.5) % Eos % (Auto) 0.2 (0-4.4) % Baso % (Auto) 0.9 (0.2-1.2) % Lymph # (Auto) 0.53 L (0.9-3.2) K/mm3 [place] # (Auto) 0.4 (0.1-0.6) K/mm3 Eos # (Auto) 0.0 (0-0.3) K/mm3 Baso # (Auto) 0.1 (0.0-0.1) K/mm3 Abs Immat Gran (auto) 0.07 H (0.00-0.031) K/mm3 Absolute Neuts (auto) 4.3 (1.3-6.7) K/mm3 Absolute Nucleated RBC 0.000 (0.0-0.012) K/mm3 Nucleated RBC % 0.0 (0.0-0.2) % PT 12.3 (11.1-14.7) Seconds INR 0.9 APTT 27.3 (22.3-36.8) Seconds Sodium 139 (137-145) mmol/L Potassium 3.9 (3.4-5.0) mmol/L Chloride 106 (98-107) mmol/L Carbon Dioxide 21 L (22-30) mmol/L Anion Gap 12 (4-12) mmol/L BUN 16 (9-20) mg/dL Creatinine 0.80 (0.7-1.3) mg/dL Estim Creat Clear Calc Not Reportable Estimated GFR > 60 (59 - ) Glucose 86 (65-110) mg/dL Calcium 9.7 (8.4-10.2) mg/dL Total Bilirubin 1.3 (0.2-1.3) mg/dL AST 41 (17-59) U/L ALT 32 (6-50) U/L Alkaline Phosphatase 108 (38-126) U/L Total Protein 7.8 (6.3-8.2) g/dL Albumin 4.5 (3.5-5.1) g/dL Imaging Data Radiologist's impression: ITS Impressions Venous Doppler Study 07/30/25 15:28 IMPRESSION: 1. No deep venous thrombosis. Lumbar Spine X-Ray 07/30/25 15:30 Impression: No acute abnormality. Discharge Plan Discharge Clinical Impression: Edema, Bruise Patient Disposition: Home Condition: Stable Instructions: Leg Edema (ED) Additional Instructions: Return the ER if you have chest pain with shortness of breath, you cannot keep down food water, you lose consciousness, or you have additional concerns. Patient Language: Malay Prescriptions: No Action multivitamin Tablet 1 tablet PO DAILY aspirin 81 mg tablet,delayed release (DR/EC) 81 mg PO DAILY Qty: 30 0RF oxycodone-acetaminophen 5-325 mg tablet 1 tablet PO Q8H PRN (Reason: Back Pain) Qty: 21 0RF amlodipine 5 mg tablet 5 mg PO DAILY Qty: 90 2RF lisinopril 40 mg tablet See Rx Instructions .ROUTE .COMPLEX Qty: 90 2RF Dose Instruction: TAKE 1 TABLET DAILY Rx Instructions: TAKE 1 TABLET DAILY ibuprofen [Advil] 200 mg Tablet 200 mg PO Q6H PRN (Reason: Pain, Mild) Follow-up/Referrals: Randal Medel MD [Primary Care Provider, Family Practice] - 1 Week
== END 2025-07-30 16:18 | disposition home or self-care (01) ==
PROVIDERS: Emergency Provider Emergency Medicine; PCP Family Medicine
DX: R60.0 Localized edema (principal); S30.0XXA Contusion of lower back and pelvis, initial encounter; Z86.73 Personal history of transient ischemic attack (TIA), and cerebral infarction without residual deficits; Z98.1 Arthrodesis status; Z87.891 Personal history of nicotine dependence; Z79.82 Long term (current) use of aspirin; Z79.899 Other long term (current) drug therapy; X58.XXXA Exposure to other specified factors, initial encounter
CPT/HCPCS: 36415; 72100; 80053; 85025; 85610; 85730; 93970; 99284

== ENCOUNTER 2025-10-13 08:36 | Outpatient (CLI) | payer MEDICARE, SELFPAY ==
--- NOTE | ~2025-10-13 | US_ITS ---
US arterial duplex [facility] 10/13/2025 09:26 Indication: Stricture of the artery Procedure: Grayscale and duplex Doppler ultrasound of the upper extremity arterial systems was performed bilaterally. Peak systolic velocities were obtained. Comparison: No prior studies for comparison. Findings: Right: Subclavian artery 1 30 cm/s, axillary artery 88 cm/s, brachial artery 1 20 cm/s, radial artery 99 cm/s, ulnar artery 83 cm/s. Antegrade flow is present throughout without focal velocity elevation to suggest hemodynamically significant stenosis. No occlusion or aneurysmal dilation. Left: Subclavian artery 10 2 cm/s, axillary artery 67 cm/s, brachial artery 74 cm/s, radial artery 59 cm/s, ulnar artery 56 cm/s. Flow is antegrade throughout without focal velocity elevation, occlusion or aneurysm. Impression: 1: Normal arterial duplex evaluation of both upper extremities. 2: Mild velocity gradient between right and left subclavian arteries without supportive findings of stenosis, likely physiologic. Reviewed, dictated and finalized at location I. [facility] Impression: 1: Normal arterial duplex evaluation of both upper extremities. 2: Mild velocity gradient between right and left subclavian arteries without s upportive findings of stenosis, likely physiologic.
--- OUTSIDE RECORDS SUMMARY | 2025-10-13 08:58 | XMS_ITS | Clinical Summary ---
Author Organization [facility] Address [address] [place] [id number] Care Team Providers Care Office Nurse Name Role Phone Americo Coburn MD Primary [...] of 2) 02/29/2008 COVID-19 Vaccine ( - 2024-2 6 season) 2025 Influenza Adult (#1) 2025 RSV Immunization or 60+ Years (1 - 1-dose 75+ series) 2033 Hepatitis A Vaccines Aged Out No long er eligible based on patient's age to complete this topic Meningococcal B Vaccine Aged Out No l onger eligible based on patient's age to complete this topic Meningococcal Vaccine Aged Out No wilbert parker eligible based on patient's age to complete this topic RSV Immunizations Under 20 Months Aged Out No longer eligible based on patient's age to complete this topic Care Teams Office Nurse Relationship Specialty Start Date End Date Americo Coburn MD [address] [place] [address] PCP - General 04/19/16
--- OUTSIDE RECORDS SUMMARY | 2025-10-13 08:58 | XMS_ITS | Clinical Summary ---
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
== END 2025-10-13 08:37 | disposition home or self-care (01) ==
PROVIDERS: PCP Family Medicine
DX: I77.1 Stricture of artery (principal)
CPT/HCPCS: 93930